=== PATIENT | female | born 1950 | race Caucasian/White ===

== ENCOUNTER 2017-07-31 12:12 | Emergency (ER) | payer OTHER, MEDICARE ==
[2017-07-31 12:46] VITALS: BP 137/78; PULSE 67; TEMP 98; BMI 28.0
--- NOTE | 2017-07-31 13:48 | PDOC ---
History of Present Illness - General Chief Complaint: Injury Stated Complaint: FALL Time Seen by Provider: 07/31/17 12:56 History Source: Patient Exam Limitations: No Limitations - History of Present Illness Initial Comments: 07/31/17 13:40 Chief complaint: Fall Patient is a 67-year-old female with a history of Parkinson's, not on blood thinners who states that she was walking in her apartment, and a pet was underway, and she tripped and fell backwards, hitting her head. No LOC. Patient is ambulatory. Patient has a deep brain stimulator that was implanted 5 years ago. He of a bump to the back of her head, no significant headache. GENERAL/CONSTITUTIONAL: No fever, weakness. dizziness HEAD, EYES, EARS, NOSE AND THROAT: No change in vision. No ear pain or discharge. No sore throat. CARDIOVASCULAR: No chest pain RESPIRATORY: No shortness of breath or cough GASTROINTESTINAL: No pain, nausea, vomiting, diarrhea or constipation GENITOURINARY: No dysuria MUSCULOSKELETAL: No neck or back pain SKIN: No rash, + hematoma back of head NEUROLOGIC: No headache, vertigo, loss of consciousness, or loss of sensation. GENERAL: The patient is awake, alert, and fully oriented, in no acute distress. HEAD: Approximately 3 cm hematoma, no crepitus, no skin opening, otherwise Normal with no signs of trauma. EYES: Pupils equal, round and reactive to light, sclera anicteric, conjunctiva clear. ENT: pharynx: no erythema, no exudate, uvula midline NECK: supple CHEST: clear, nontender, rr ABD: soft, nontender EXTREMITIES: Normal range of motion, no edema. NEUROLOGICAL: Normal speech, normal gait, slow and at patient's baseline SKIN: Warm, Dry Past History - Past Medical History Allergies/Adverse Reactions: Allergies Allergy/AdvReac Type Severity Reaction Status Date / Time acetaminophen [From Percocet] Allergy Verified 07/31/17 12:34 codeine Allergy Verified 07/31/17 12:34 oxycodone HCl [From Percocet] Allergy Verified 07/31/17 12:34 Penicillins Allergy Verified 07/31/17 12:34 Sulfa (Sulfonamide Allergy Verified 07/31/17 12:34 Antibiotics) Home Medications: Ambulatory Orders Unobtainable [Unobtainable] 07/31/17 Dementia: Yes Other medical history: Parkinson's - Surgical History Neurologic Surgery: Yes (DBS) - Suicide/Smoking/Psychosocial Hx Smoking History: Never smoked Information on smoking cessation initiated: No Hx Alcohol Use: No Drug/Substance Use Hx: No Substance Use Type: None *Physical Exam - Vital Signs Last Vital Signs Temp Pulse Resp BP Pulse Ox 98 F 67 16 137/78 100 07/31/17 12:35 07/31/17 12:35 07/31/17 12:35 07/31/17 12:35 07/31/17 12:35 ED Treatment Course - RADIOLOGY Radiology Studies Ordered: Category Date Time Status HEAD CT WITHOUT CONTRAST [CT] Stat CT Scan 07/31/17 13:35 Ordered Medical Decision Making - Medical Decision Making 07/31/17 14:[address] and home care agency called saying that patient is not allowed to make decision regarding her care that she has a healthcare proxy. This was never conveyed and patient is alert and aware of her surroundings. Healthcare agency said she has a blue card in her bag regarding imaging, I looked at the card, and it relates to MRI only and there is no alert for any other imaging. Home care agency is concerned and is having healthcare proxy call the ER. Patient is stable. Will await a phone call to do any imaging Discussed with healthcare proxy, Alexandru Tirado who requested call to neurologist even after explanation of imaging. Tried 3 times to call neurologist and unable to get through. Discussed with Dr. palomo, who agreed with management and head CT. Called back Mr. Tirado to discuss and explained further who agreed to head CT. Results were given to history of [facility] and copies of report and findings of meningioma with detailed on discharge instructions for follow-up. Patient states she is aware of meningioma from prior and she will follow-up with neurologist for further evaluation. No other findings on head CT 07/31/17 16:23 Discussed issues, findings, results, applicable medications and treatments and follow-up. All these were understood and all questions were answered 07/31/17 16:24 *DC/Admit/Observation/Transfer Diagnosis at time of Disposition: Head injury Qualifiers: Encounter type: initial encounter Qualified Code(s): S09.90XA - Unspecified injury of head, initial encounter - Discharge Dispostion Disposition: HOME Condition at time of disposition: Stable Admit: No - Referrals Referrals: Madan Gentile [Primary Care Provider] - - Patient Instructions Printed Discharge Instructions: DI for Closed Head Injury Additional Instructions: Return to the nearest ER if worsening headache, nausea, vomiting, unsteady or worsening symptoms. You can take Tylenol every 4 hours for headache. Follow-up with the neurologist regarding the findings of the meningioma on the CT report
== END 2017-07-31 16:13 | disposition home or self-care (01) ==
LOC: JERFT 12:12
DX: S00.03XA Contusion of scalp, initial encounter (principal); G20 Parkinson's disease; F02.80 Dementia in other diseases classified elsewhere, unspecified severity, without behavioral disturbance, psychotic disturbance, mood disturbance, and anxiety; W01.0XXA Fall on same level from slipping, tripping and stumbling without subsequent striking against object, initial encounter; Y93.89 Activity, other specified; Y92.018 Other place in single-family (private) house as the place of occurrence of the external cause
CPT/HCPCS: 70450-TC; 99281-25